=== PATIENT | male | born 1935 | race Caucasian/White ===

== ENCOUNTER → 2017-06-07 09:51 | Outpatient (CLI) | payer MEDICARE, OTHER ==
[2016-07-31 11:02] VITALS: BMI 23.1
[~2017-06-07 09:51] MED LIST: ASPIRIN 81 MG E81 MG PO; AXID150 MG PO; CO Q-1050 MG PO; CRANBERRY 400 M1 TA1 PO; CRESTOR10 MG PO; EFFIENT10 MG PO; FISH OIL 1,0001 CA1 PO; LOVAZA1 G PO; MULTI-DAY VITAM1 TAB PO; NEXIUM40 MG PO; PLAVIX75 MG PO; PRAVACHOL20 MG PO; SAW PALMETTO450 MG PO; TOPROL XL25 MG PO; VITAMIN B-121000 MC3 PO; VITAMIN D31000 UNIT PO; ZOLOFT50 MG PO
== END | disposition home or self-care (01) ==
LOC: D.RT 09:51
DX: J44.9 Chronic obstructive pulmonary disease, unspecified (principal)

== ENCOUNTER 2017-06-28 08:27 | Outpatient (CLI) | payer MEDICARE, OTHER ==
[~2017-06-28] VITALS: Ht 177.8 cm; Wt 72.7 kg
--- NOTE | ~2017-06-28 | HEMODYNAMI ---
PATIENT:Emmanuel RIVERA JR MEDICAL RECORD: [id number] : 37 LOCATION:[facility] ADMISSION DATE: 06/28/17 Generatedon:06/28/201713:20 Patient name: Emmanuel RIVERA Patient #: [id number] SSN: : 1934 Date of study: 06/28/2017 Page: Of Hemodynamic Procedure Report Patient Data Patient Demographics Procedure consent was obtained First Name: Emmanuel Gender: Male Last Name: MIGUEL Suffix: Jr Amador Initial: Rufino : 1935 Patient #: [id number] Age: 82 year(s) Race: Unknown Additional ID: [id number] Contact details Address: [place] [address] State: [place] City: [facility] Zip code: [address] Past Medical History Allergies Allergen Reaction Date Comments Reported Other allergy 07/31/2016 pcn,meperione,niacin Admission Admission Data Admission Date: 06/28/2017 Admission Time: 8:27 Height (in.): 61 BSA: 1.72 (m2) Height (cm.): 154.94 BMI: 30.23 (kg/m2) Weight (lbs.): 160 Weight (kg.): 72.57 Procedure Procedure Types Cath Procedure Diagnostic Procedure LHC LHC w/Coronaries w/Grafts Miscellaneous Procedures Moderate Sedation up to 45 minutes Procedure Description Procedure Date Procedure Date: 06/28/2017 Procedure Start Time: 12:24 Procedure End Time: 13:17 Procedure Staff Name Function Tu Will MD Performing Physician Keyla Mondragon RT Scrub Eufemia Shah RT Monitor Carroll Maddox RN Nurse Procedure Data Cath Procedure Fluoroscopy Diagnostic fluoroscopy Total fluoroscopy Time: time: 35.4 min 35.4 min Diagnostic fluoroscopy Total fluoroscopy dose: dose: 2665 mGy 2665 mGy Contrast Material Contrast Material Type Amount (ml) Isovue 300 206 Entry Location Entry Primary Successful Side Size Upsize Upsize Entry Closure Succes sful Closure Location (Fr) 1 (Fr) 2 (Fr) Remarks Device Remarks Femoral Right 5 Fr 6 Fr Exoseal artery Short Estimated blood loss: 10 ml Diagnostic catheters Device Type Used For End Catheter Placement Cordis 5Fr Pigtail Procedure Catheter (MP) Cordis 5Fr JL 4.0 Procedure Catheter (MP) Cordis 5Fr 3DRC Catheter Procedure (MP) Procedure Complications No complications Procedure Medications Medication Administration Route Dosage Oxygen NC 2 l/min Heparin Flush Bag added to field 2 bags (1000units/500ml NS) 0.9% NaCl I.V. 100 ml/hr Fentanyl I.V. 50 mcg Versed I.V. 1 mg Fentanyl I.V. 50 mcg Versed I.V. 1 mg Heparin Bolus I.V. 4000 units Heparin Bolus I.V. 4000 units Fentanyl I.V. 50 mcg Fentanyl I.V. 50 mcg Versed I.V. 1 mg Hemodynamics Rest BSA: 1.72 (m2) O2 Consumption: Estimated: 241.74 (ml/min) O2 Consumption indexed : Estimated:140.55 (ml/min/m) Heart Rate: 140 (bpm) Pressure Samples Time Site Value (mmHg) Purpose Heart Use Rate(bpm) 12:25 LV 0/-1,0 Snapshot 59 Snapshots Pre Cath Intra NCS Post Cath Vital Signs Time Heart Resp SPO2 etCO2 NIBP (mmHg) Rhythm Pain Sedation Rate (ipm) (%) (mmHg) Status Level (bpm) 12:03:15 68 18 98 0 158/70(127) NSR 0 (11) 10(A) , No pain 12:07:35 67 18 99 0 155/84(128) NSR 0 (11) 10(A) , No pain 12:11:57 68 17 99 0 153/78(118) NSR 0 (11) 10(A) , No pain 12:16:24 70 18 98 0 136/69(120) NSR 0 (11) 10(A) , No pain 12:20:42 67 18 100 25.4 133/73(108) NSR 0 (11) 10(A) , No pain 12:24:58 68 17 100 12.7 135/74(114) NSR 0 (11) 9(A) , No pain 12:29:12 75 17 100 18.6 130/68(107) NSR 0 (11) 9(A) , No pain 12:33:28 71 18 100 35.8 120/60(98) NSR 0 (11) 9(A) , No pain 12:37:40 71 18 100 11.9 116/61(96) NSR 0 (11) 9(A) , No pain 12:41:52 72 18 100 32.1 125/64(101) NSR 0 (11) 9(A) , No pain 12:46:12 73 19 100 31.3 119/61(100) NSR 0 (11) 9(A) , No pain 12:50:24 72 19 100 24.6 129/70(105) NSR 0 (11) 9(A) , No pain 12:54:40 74 17 100 31.3 137/71(112) NSR 0 (11) 9(A) , No pain 12:58:54 70 18 100 29 127/64(104) NSR 0 (11) 9(A) , No pain 13:03:10 73 16 100 1.4 124/68(111) NSR 0 (11) 9(A) , No pain 13:07:22 78 17 100 30.5 129/73(107) NSR 0 (11) 9(A) , No pain 13:11:36 78 17 100 16.4 135/69(112) NSR 0 (11) 9(A) , No pain 13:15:56 77 18 99 23.8 129/63(103) NSR 0 (11) 9(A) , No pain 13:17:07 76 18 99 21.6 121/66(104) NSR 0 (11) 9(A) , No pain Medications Time Medication Route Dose Verified Delivered Reason Notes Effectiveness by by 12:15:11 Oxygen NC 2 Tu Hodges Per physician l/min Nicolette Maddox RN 12:16:52 Heparin Flush added 2 Tu Hodges used for Bag to bags Nicolette Maddox RN procedure (1000units/500ml field NS) 12:17:04 0.9% NaCl I.V. 100 Tu Hodges Per physician ml/hr Nicolette Maddox RN 12:23:50 Fentanyl I.V. 50 Tu Hodges for sedation mcg Nicolette Maddox RN 12:23:56 Versed I.V. 1 mg Tu Hodges for sedation Tauth MD Maddox RN 12:33:08 Fentanyl I.V. 50 Tu Carroll for sedation mcg Nicolette Maddox RN 12:33:11 Versed I.V. 1 mg Tu Hodges for sedation Nicolette Maddox RN 12:33:20 Heparin Bolus I.V. 4000 Tu Carroll for units Nicolette Maddox RN anticoagulation 12:47:43 Heparin Bolus I.V. 4000 Tu Carroll for units Nicolette Maddox RN anticoagulation 12:55:02 Fentanyl I.V. 50 Tu Hodges for sedation mcg Nicolette Maddox RN 13:00:59 Fentanyl I.V. 50 Tu Duncany for sedation mcg Nicolette Maddox RN 13:02:27 Versed I.V. 1 mg Tu Hodges for sedation Nicolette Maddox RN Procedure Log Time Note 11:41:36 Diagnostic Cath Status : Elective 11:42:01 Keyla Mondragon RT(R) sent for patient. Start room use. 11:42:02 Time tracking: Regular hours 11:42:05 Plan of Care:Hemodynamics will remain stable., Cardiac rhythm will remain stable., Comfort level will be maintained., Respiratory function will remain adequate., Patient/ family verbilizes understanding of procedure., Procedure tolerated without complication., Recovers from procedure without complications.. 12:01:45 Patient received from Pre/Post Procedure Room to CCL 2 Alert and oriented. Tansferred to table in Supine position. 12:01:47 Warm blankets applied, and katherine hugger turned on for patient comfort. 12:01:47 Correct patient and procedure confirmed by team. 12:01:48 Signed procedure consent form obtained from patient. 12:01:49 ECG and BP/O2 sat monitors applied to patient. 12:01:49 Vital chart was started 12:01:50 Baseline sample Acquired. 12:01:54 Full Disclosure recording started 12:01:58 H&P Date Dictated: 06/28/2017 Within 30 days and on chart., H&P Addendum completed by physician on day of procedure. (MUST COMPLETE FOR ALL OUTPATIENTS). 12:01:59 Pre-procedure instructions explained to patient. 12:02:00 Pre-op teaching completed and patient verbalized understanding. 12:02:01 Family in waiting room. 12:02:03 Patient NPO since Midnight. 12:06:41 Is the patient allergic to Iodine/contrast media? No. 12:06:43 Is patient on blood thinner?Yes 12:06:47 ACC The patient was administered the following blood thiners within the last 24 hours: ACCPlavix 12:06:53 Previous problem with sedation/anesthesia? No ? 12:07:03 Lab results completed and on chart. 12:07:07 Right groin area was prepped with chlora-prep and draped in sterile fashion 12:07:09 Alarms reviewed by R. N. 12:07:10 Sharps counted by scrub and verified by R.N. 12:07:11 Physician paged 12:07:28 Airway obstruction? Yes Asthma 12:07:32 Snore? Yes 12:08:01 IV patent on arrival in left hand with 0.9% NaCl at [facility]. 12:08:10 Use device set Femoral Dx 12:09:55 Acist Syringe opened to sterile field. 12:09:56 Bag Decanter opened to sterile field. 12:09:56 Medline Cath Pack opened to sterile field. 12:09:56 Terumo 5Fr [place] Sheath opened to sterile field. 12:09:57 St Benjamin 260cm J .035 wire opened to sterile field. 12:09:59 Acist Hand Control opened to sterile field. 12:09:59 Acist Manifold opened to sterile field. 12:10:00 Diagnostic Infinity 5Fr Multipack catheter opened to sterile field. 12:10:00 Tegaderm 4 x 4 opened to sterile field. 12:11:32 Procedure type changed to Cath procedure, Diagnostic procedure, LHC, LHC w/Coronaries w/Grafts, Miscellaneous Procedures, Moderate Sedation up to 45 minutes 12:11:56 Patient Height : 61 inches 12:12:06 Patient Weight : 160 lbs 12:15:11 Oxygen 2 l/min NC was administered by Carroll Maddox RN; Per physician; 12:16:25 Zero performed for pressure channel P1 12:16:52 Heparin Flush Bag (1000units/500ml NS) 2 bags added to field was administered by Carroll Maddox RN; used for procedure; 12:17:04 0.9% NaCl 100 ml/hr I.V. was administered by Carroll Maddox RN; Per physician; 12:20:08 Zero performed for pressure channel P1 12:23:00 Physician arrived 12::00 --------ALL STOP TIME OUT------ 12:23:01 Final Timeout: patient, procedure, and site verified with staff and physician. All members of the team are in agreement. 12:23:03 Right groin site verified by team. 12:23:06 Physical assessment completed. ASA score P 2 - A patient with mild systemic disease as per Tu Will MD. 12:23:10 Sedation plan: IV Moderate Sedation Medication:Versed, Fentanyl 12::50 Fentanyl 50 mcg I.V. was administered by Carroll Maddox RN; for sedation; 12::56 Versed 1 mg I.V. was administered by Carroll Maddox RN; for sedation; 12::59 Procedure started. 12:24:38 Local anesthetic to right femoral artery with Lidocaine 2% by Tu Will MD.INITIAL ACCESS ONLY 12:24:47 A 5 Fr sheath was inserted into the Right Femoral artery 12::59 A Cordis 5Fr Pigtail Catheter (MP) was advanced over the wire and used for Procedure. 12:25:06 LV gram done using VALLE 12:25:40 EF : 55 % 12::43 Catheter removed. 12::57 A Cordis 5Fr JL 4.0 Catheter (MP) was advanced over the wire and used for Procedure. 12::00 LCA angiography performed. 12:28:38 Catheter removed. 12::47 A Cordis 5Fr 3DRC Catheter (MP) was advanced over the wire and used for Procedure. 12:29:32 unable to see the RCA 12:29:34 Catheter removed. 12:29:37 Terumo 6Fr [place] Sheath opened to sterile field. 12:29:38 Merit BasixCompak Inflation Kit opened to sterile field. 12:29:39 [place] [employer] Choice PT Extra Support 182cm wire opened to sterile field. 12::57 Sheath upsized to a 6 Fr Short. 12:30:20 JustFoodForDogstronic Launcher 6Fr 3DRIGHT guide catheter opened to sterile field. 12:30:47 6 Fr 3dright guide catheter was inserted over the wire 12:32:38 extra support wire advanced. 12:33:08 Fentanyl 50 mcg I.V. was administered by Carroll Maddox RN; for sedation; 12:33:11 Versed 1 mg I.V. was administered by Carroll Maddox RN; for sedation; 12:33:20 Heparin Bolus 4000 units I.V. was administered by Carroll Maddox RN; for anticoagulation; 12:35:08 Guide catheter removed. 12:35:35 Medtronic Launcher 6Fr 3DRC SH guide catheter opened to sterile field. 12:37:27 6 Fr 3drc sh guide catheter was inserted over the wire 12:37:35 extra support wire advanced. 12:39:49 Wire removed. 12:40:10 Jones Fielder XT J 300cm 0.014 guide wire opened to sterile field. 12:40:21 Fielder wire advanced. 12:47:43 Heparin Bolus 4000 units I.V. was administered by Carroll Maddox RN; for anticoagulation; 12:51:58 [employer] [place] Desha 1.5 X 15 balloon was advanced and then removed because of failure to cross lesion 12:52:46 Medtronic Launcher 6Fr AR 2.0 guide catheter opened to sterile field. 12:52:55 6 Fr ar2 guide catheter was inserted over the wire 12:53:31 unable to cannulate vessel 12:53:42 Guide catheter removed. 12:54:08 Medtronic Launcher 6Fr HS II guide catheter opened to sterile field. 12:54:22 6 Fr HS2 guide catheter was inserted over the wire 12:54:41 Feilder wire advanced. 12:54:45 Balloon re-inserted over wire. 12:55:02 Fentanyl 50 mcg I.V. was administered by Carroll Maddox RN; for sedation; 12:59:40 Wire removed. unable to cannulate vessel. 12:59:49 Balloon removed. unable to cannulate vessel. 13:00:20 6 Fr 3DRIGHT guide catheter was inserted over the wire 13:00:32 Fielder wire advanced. 13:00:59 Fentanyl 50 mcg I.V. was administered by Carroll Maddox RN; for sedation; 13:02:27 Versed 1 mg I.V. was administered by Carroll Maddox RN; for sedation; 13:11:26 Jones Fielder XT J 300cm 0.014 guide wire opened to sterile field. 13:12:41 fielder XT advanced to conus branch and 2nd wire advanced to RCA 13:13:21 Wire removed. unable to cannulate vessel. 13:13:29 Catheter removed. unable to cannulate vessel. 13:13:47 Balloon removed. unable to cross lesion. 13:14:00 Cordis 6Fr Exoseal opened to sterile field. 13:14:59 Sheath removed intact; hemostasis achieved with Exoseal to the Right Femoral artery. 13:15:02 Procedure ended.(Physican Out) 13:15:39 Fluoroscopy time 35.40 minutes. 13:15:44 Flurop Dose total: 2665 13:15:44 Fluoroscopy dose: 2665 mGy 13:15:49 Contrast amount:Isovue 300 206ml. 13:15:50 Sharps counted by scrub and verified by R.N. 13:15:53 Insertion/operative site no bleeding no hematoma. 13:15:58 Post-op/insertion site Right Femoral artery dressed using a 4 x 4 and Tegaderm. 13:16:00 Post Procedure Pulses reassessed and unchanged 13:16:05 Post-procedure physical assessment completed. ASA score P 2 - A patient with mild systemic disease as per Tu Will MD. 13:16:08 Post procedure rhythm: unchanged. 13:16:10 Estimated blood loss: 10 ml 13:16:12 Post procedure instruction explained to patient.Patient verbalizes understanding. 13:16:40 Procedure and supply charges have been captured, reviewed, submitted and are correct. 13:17:11 Procedure Complication : No complications 13:17:14 Vital chart was stopped 13:17:15 See physician's report for complete and final results. 13:17:16 Report given to Pre/Post Procedure Room. 13:17:21 Patient transfered to Pre/Post Procedure Room with Stretcher. 13:17:23 Procedure ended. 13:17:23 Full Disclosure recording stopped 13:17:31 End room use (Document Last) Intervention Summary Intervention Notes Time ActionType Lesion and Equipment Action# Pressure Duration Attributes Used 12:51:58 Discard [place] Balloon Sci Desha 1.5 X 15 balloon Device Usage Item Name Manufacture Quantity Catalog Number Hospital Part Current Mini mal Lot# / Charge Number Stock Stock Serial# Code Acist Acist 1 [id number] [id number] 221789 498795 20 Syringe Medical [employer] Inc Bag Microtek 1 2002S 346502 28508 773583 5 [employer] Medline Cardinal 1 [id number] 765276 18290 855044 5 Cath Pack Health Terumo 5Fr Terumo 1 [id number] 100311 904205 260325 [address] [place] [address] Benjamin 1 225931 278960 371393 228605 30 260cm J .035 wire Acist Hand Acist 1 59418 981381 920624 575705 5 Emida Systems Inc Acist Acist 1 30213 418922 405709 933126 5 Dipexium Pharmaceuticals Systems Inc Diagnostic Cardinal 1 [id number] 533687 29791 634153 30 Infinity Health 5Fr Multipack catheter Tegaderm 4 3M 1 1626W 650632 944922 320082 5 x 4 Cordis 5Fr Cardinal 1 220273 5 Pigtail Health Catheter (MP) Cordis 5Fr Cardinal 1 [id number] 5 JL 4.0 Health Catheter (MP) Cordis 5Fr Cardinal 1 748957 5 3DRC Health Catheter (MP) Terumo 6Fr Terumo 1 [id number] 097382 774311 336064 40 [place] Sheath Merit Merit 1 [id number] 580108 155062 563973 15 [facility] Medical Inflation Kit [place] [employer] [place] 1 [id number] 254232 064988 478721 5 Choice PT Scientific Extra Support 182cm wire Medtronic Medtronic 1 [id number] 353836 594117 754042 1 Launcher 6Fr 3DRIGHT guide catheter Medtronic Medtronic 1 [id number] 656146 538883 704420 1 Launcher 6Fr 3DRC SH guide catheter Jones Jones 2 [id number] 512237 547331 834386 5 Fielder XT Vascular J 300cm 0.014 guide wire [place] [employer] [place] 1 [id number] 837459 338203 765046 1 [id number] [employer] 1.5 X 15 balloon Medtronic Medtronic 1 [id number] 653955 38657 930477 1 Launcher 6Fr [place] 2.0 guide catheter Medtronic Medtronic 1 [id number] 324774 31636 460744 1 Launcher 6Fr HS II guide catheter Cordis 6Fr Cardinal 1 EX600 636146 634634 350509 10 [employer] Signature Audit Sherrill Stage Time Signature Unsigned Intra-Procedure 06/28/2017 Eufemia Shah 1:20:00 PM RT(R) Signatures Monitor : Eufemia Shah Signature : RT Date : Time : [address] [id number] [place] [address]
[~2017-06-28 08:27] MED LIST changes: -CO Q-1050 MG PO; -CRANBERRY 400 M1 TA1 PO
[2017-06-28] MEDS ORDERED: CO Q-1050 MG PO (09:04)
[2017-06-28] MEDS ORDERED: CRANBERRY 400 M1 TA1 PO (09:04)
[2017-06-28 09:13] VITALS: BP 141/72; Ht 177.8 cm; Wt 72.7 kg
[2017-06-28 09:24] LABS: BASOPHILS 0.5 % (0-2); HEMATOCRIT 42.7 % (42.0-54.0); HEMOGLOBIN 14.5 g/dL (13.5-17.5); IMMATURE GRANULOCYTES 0.2 % (0-5); LYMPHOCYTES 23.3 % (15-50); MCH 30.7 pg (26.0-34.0); MCV 90.5 fL (80.0-100.0); MEAN PLATELET VOLUME 11.5 fL (7.4-10.4); MONOCYTES 11.4 % (2-11); NEUTROPHILS 58.6 % (40-80); PLATELET COUNT 158 10x3/uL (130-400); RBC 4.72 10x6/uL (4.20-6.10); RDW 13.6 % (11.5-14.5); WBC 5.9 10x3/uL (4.8-10.8)
[2017-06-28 09:37] LABS: ANION GAP 13.1 mmol/L (8-16); CALCIUM 9.2 mg/dL (8.5-10.1); CARBON DIOXIDE 25.7 mmol/L (21.0-32.0); CREATININE - SERUM 1.1 mg/dL (0.6-1.3); POTASSIUM - SERUM 4.8 mmol/L (3.5-5.1)
--- NOTE | 2017-06-28 14:19 | NUR ---
1350 LYING FLAT, ROOM AIR. NSR RATE 68 W NO C/O CHEST PAIN. PULSES PALP X 4, R GROIN REMAINS C/D/I W NO HEMATOMA OR BLEEDING. AT BEDSIDE. TAUTH AT BEDSIDE TO DISCUSS FINDINGS WITH PATIENT .
--- NOTE | 2017-06-28 16:42 | NUR ---
1430 REMAINS FLAT, ROOM AIR. ALL VITALS WNL. R GROIN 6F EXOSEAL REMAINS C/D/I W NO HEMATOMA OR BLEEDING. AT SIDE. 1530 EATING TURKEY SANDWICH WITH ASSIST FROM . VOIDED 300CC VIA URINAL. R GROIN REMAINS C/D/I. 1645 PIV REMOVED FROM LEFT ARM WITH BANDAID APPLIED. R GROIN REMAINS C/D/I.
--- NOTE | 2017-06-28 16:59 | NUR ---
D/C INSTRUCTIONS DISCUSSED WITH PATIENT AND T BEDSIDE. WHEELED OUT VIA WHEELCHAIR BY CATH TEAM.
--- NOTE | 2017-07-08 09:02 | OP ---
PATIENT NAME: Emmanuel RIVERA JR MEDICAL RECORD: [id number] :37 LOCATION:D.CAT ADMISSION DATE: SURGEON: MARQUITA COLÓN MD DATE OF OPERATION: 06/28/2017 PROCEDURES: 1. Attempted, but failed PTCA stent total occlusion RCA. 2. Left heart catheterization. 3. Selective coronary angiography. 4. Left ventriculogram. 5. LORA angiography. INDICATION: Angina and coronary artery disease. PROCEDURE IN DETAIL: After informed consent was obtained and after detailed explanation of risks, benefits as well as alternative therapies, the patient elected to proceed with angiogram and angioplasty. The right femoral area was prepped and draped in normal sterile fashion. The right femoral artery was cannulated via modified Seldinger technique with placement of 6-Chinese sheath. All catheters exchanged through this sheath. FINDINGS: The left ventriculogram was performed in standard 30-degree VALLE view, reveals preserved cardiac wall motion, ejection fraction 50%. SELECTIVE CORONARY ANGIOGRAPHY: 1. Left main is with no significant angiographic disease. 2. Left anterior descending is totally occluded. 3. LORA to the LAD is patent. Distal LAD is patent. 4. Left circumflex has previously placed stents, these are widely patent with no significant restenosis. No disease elsewise throughout the circumflex or its branches. 5. The right coronary artery has a previously placed stent at the ostium that is chronically totally occluded. ATTEMPTED PTCA STENT OF THE RIGHT CORONARY ARTERY: We could not pass any wire including Choice PT, Graphix, Whisper, Fielder wire through this area of total occlusion. 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 Continue medical management of the coronary artery disease and angina. Consider intervention specialized in NOTE TAKER versus repeat bypass surgery if the angina persists. TRANSINT:[id number] Voice Confirmation ID: [id number] DOCUMENT ID: [id number] MARQUITA COLÓN MD at 0902 CC: JERMAIN AMADOR [id number] DICTATION DATE: 06/28/17 1358 CLERK CHECKER: 06/28/17 1419 DEP CLI 06/28/17 [place] [address]
== END 2017-06-28 17:00 | disposition home or self-care (01) ==
LOC: D.CATH 08:27
PROVIDERS: Internal Medicine Interventional Cardiology
DX: I25.119 Atherosclerotic heart disease of native coronary artery with unspecified angina pectoris (principal); R94.30 Abnormal result of cardiovascular function study, unspecified; I10 Essential (primary) hypertension; E78.5 Hyperlipidemia, unspecified; Z01.812 Encounter for preprocedural laboratory examination